=== PATIENT | male | born 1970 | race African-American/Black ===

== ENCOUNTER 2016-12-28 10:52 | Emergency (ER) | payer OTHER ==
[~2016-12-28 10:52] MED LIST: ARTHRITIS MED
[2016-12-28] MEDS ORDERED: ANTIBIOTIC (10:53)
== END 2016-12-28 11:44 | disposition home or self-care (01) ==
LOC: SED 10:52
DX: S90.822A Blister (nonthermal), left foot, initial encounter (principal); S90.821A Blister (nonthermal), right foot, initial encounter; F17.210 Nicotine dependence, cigarettes, uncomplicated; X58.XXXA Exposure to other specified factors, initial encounter; Y92.9 Unspecified place or not applicable
CPT/HCPCS: 99283